=== PATIENT | male | born 1990 | race Caucasian/White ===

== ENCOUNTER → 2018-06-26 14:40 | Outpatient (CLI) | payer MEDICAID, SELFPAY ==
--- NOTE | 2018-06-26 14:41 | RAD_ITS ---
HISTORY: No known injury. Pain in left side of neck radiating into left shoulder for about a week now but off and on. 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 COMPARISON: 04/02/2016 FINDINGS: XR cervical spine 3 views No significant change. Straightening of the cervical spine. Cervical vertebral are normal in height. No fracture or suspicious bony lesion. Cervical disc space heights are preserved. Posterior elements are intact. No spondylolisthesis. The C1-C2 relationship is normal. Prevertebral soft tissues are unremarkable. RAD/Cerv Spine 2 or 3 Views IMPRESSION: 1. Straightening of the cervical spine which may be positional or related to paravertebral muscle spasm. Otherwise normal exam. No bony abnormality seen. at 0722 Reported and signed by: Abdiaziz Lee MD Electronically Signed: Abdiaziz Lee, at 7:21 EDT Tel , Service support ,
== END ==
PROVIDERS: Referring Provider Physician Assistant; Visit Provider Physician Assistant
DX: M54.12 Radiculopathy, cervical region (principal)
CPT/HCPCS: 72040

== ENCOUNTER → 2019-01-18 16:26 | Outpatient (CLI) | payer BC, MEDICAID, SELFPAY ==
[2018-12-24 15:04] VITALS: BMI 23.6
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
== END ==
PROVIDERS: Referring Provider Physician Assistant; Visit Provider Physician Assistant
DX: M54.2 Cervicalgia (principal); M62.838 Other muscle spasm
CPT/HCPCS: 72141

== ENCOUNTER 2019-01-27 19:01 | Emergency (ER) | payer BC, MEDICAID, SELFPAY ==
[2018-12-24 15:04] VITALS: BMI 23.6
[2019-01-27 19:01] VITALS: BP 123/88; PULSE 93; RESP 16; TEMP 36.6; O2SAT 99; BMI 24.3
[2019-01-27 19:05] VITALS: RESP 16
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
--- NOTE | 2019-01-27 19:17 | ED.RN ---
NO OLD EKGS
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
[2019-01-27] MEDS: Ibuprofen 600 MG Tablet PO (20:27)
[2019-01-27 20:30] VITALS: RESP 16
== END 2019-01-27 20:30 | disposition home or self-care (01) ==
LOC: ED 19:39
PROVIDERS: Emergency Provider Emergency Medicine; Family Provider Family Medicine; PCP Family Medicine
DX: S16.1XXA Strain of muscle, fascia and tendon at neck level, initial encounter (principal); S43.402A Unspecified sprain of left shoulder joint, initial encounter; V89.2XXA Person injured in unspecified motor-vehicle accident, traffic, initial encounter; Y93.9 Activity, unspecified; Y92.9 Unspecified place or not applicable
CPT/HCPCS: 70450; 72072; 72125; 73030; 99284

== ENCOUNTER → 2019-01-28 15:15 | Outpatient (CLI) | payer BC, MEDICAID, SELFPAY ==
[2019-01-27 19:01] VITALS: BMI 24.3
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
== END ==
PROVIDERS: Family Provider Family Medicine; PCP Family Medicine; Referring Provider Physician Assistant; Visit Provider Physician Assistant
DX: M25.511 Pain in right shoulder (principal)
CPT/HCPCS: 73030